=== PATIENT | male | born 1975 | race Caucasian/White ===

== ENCOUNTER 2019-09-05 01:31 | Observation (INO) | payer BC, SELFPAY ==
[2019-09-05] VITALS (10 sets, daily range): BP systolic 114–151; BP diastolic 71–99; PULSE 58–116; RESP 18–24; TEMP 36.4–37.1; O2SAT 97–100; BMI 26.9
--- NOTE | ~2019-09-05 | XR_ITS ---
XR chest 1V portable 09/05/2019 01:58 Indication: Chest pain Procedure: AP portable chest Comparison: 05/15/2013 Findings: Heart size normal. Scattered calcified granulomas of the lung parenchyma. No acute osseous abnormality. No focal air space disease, pulmonary edema, pleural effusion or suspected pneumothorax. Impression: 1: No acute cardiopulmonary disease. Reviewed, dictated and finalized at location A. Impression: 1: No acute cardiopulmonary disease.
--- NOTE | 2019-09-05 01:43 | ED.CHESTPAIN ---
HPI - Chest Pain General Stated Complaint: CHEST PAIN Source: patient Mode of arrival: ambulatory Limitations: no limitations History of Present Illness MD complaint: chest pain and chest heaviness Onset (ago): minute(s) Timing of current episode: constant Prior episodes: No Onset: during rest and awoke with symptoms Pain location: substernal Pain radiation: none Severity: severe Quality: tightness and heaviness Relieving factors: nitroglycerin Exacerbating factors: nothing Associated symptoms: nausea, vomiting and diaphoresis Risk Factors Coronary artery disease risk factors: none Thoracic aortic dissection risk factors: none Related Data Allergies Allergy/AdvReac Type Severity Reaction Status Date / Time No Known Allergies Allergy Unknown Verified 03/10/18 14:43 [facility] Social History Social History Smoking status: Current every day smoker MDM - Chest Pain ECG Data EKG #1: ECG completion date: 09/05/19 ECG completion time: 01:35 Prior ECG tracings: not available for review EKG Interpretation: normal rate and sinus rhythm
--- NOTE | 2019-09-05 01:47 | ECG_ITS ---
Measurements Intervals [employer] Rate: 86 P: 28 FL: 114 QRS: 64 QRSD: 97 T: 31 QT: 351 QTc: 420 Interpretive Statements SINUS RHYTHM WITH SHORT FL INTERVAL BORDERLINE ST ABNORMALITY- INFERIOR LEADS BASELINE ARTIFACT- I, II, III, AVR, AVL, AVF, V-V6 BORDERLINE ECG Electronically Signed On 09-05-2019 7:13:41 CDT by Jose Manuel Barraza D.O.
[2019-09-05 01:59] LABS: Basophils Absolute Auto 0.03 K/mm3 (0.00-0.10); Basophils Percent Auto 0.4 % (0.0-1.0); Eosinophils Absolute Auto 0.14 K/mm3 (0.02-0.50); Eosinophils Percent Auto 1.9 % (1.0-6.0); Hematocrit 37.7 % (40.0-54.0); Immature Granulocyte Absolute 0.02 K/mm3 (0.00-0.00); Immature Granulocyte Percent A 0.3 % (0.0-0.0); Lymphocytes Absolute Auto 3.12 K/mm3 (1.10-4.50); Lymphocytes Percent Auto 43.3 % (18.0-42.0); Mean Corpuscular HGB Conc 34.5 g/dL (32.0-36.0); Mean Corpuscular Hemoglobin 29.5 pg (27.0-31.0); Mean Corpuscular Volume 85.5 fL (78.0-102.0); Mean Platelet Volume 11.9 fl (8.7-11.0); Monocytes Percent Auto 8.3 % (2.0-11.0); Neutrophils Absolute Auto 3.3 K/mm3 (1.7-7.2); Neutrophils Percent Auto 45.8 % (50.0-70.0); Platelet Count Result 138 K/mm3 (150-420); Red Blood Count 4.41 M/mm3 (4.70-6.10); Red Cell Distribution Width 11.8 % (11.6-14.4); White Blood Count 7.2 K/mm3 (4.8-10.8)
[2019-09-05] MEDS: ONDANSETRON INJ 4 MG/2 ML VIAL IV PUSH (01:59)
[2019-09-05] MEDS: ASPIRIN 81 MG CHEWABLE TABLET 324 MG PO (01:59)
--- NOTE | 2019-09-05 02:01 | ECG_ITS ---
Measurements Intervals [place] Rate: 57 P: 7 PA: 137 QRS: 53 QRSD: 97 T: 40 QT: 397 QTc: 389 Interpretive Statements SINUS BRADYCARDIA WITH SINUS ARRHYTHMIA MINIMAL Q WAVES- INF/LAT LEADS BORDERLINE ECG Electronically Signed On 09-05-2019 7:14:16 CDT by Jose Manuel Barraza D.O.
[2019-09-05] MEDS: METOPROLOL TARTRATE INJ 5 MG/5 ML VIAL IV PUSH (02:02)
[2019-09-05] MEDS: MORPHINE SULFATE 4 MG/ML INJ IM (02:07)
[2019-09-05] MEDS: NITROGLYCERIN SL 0.4 MG TABLET SUBLINGUAL (02:09)
[2019-09-05 02:10] LABS: D Dimer 0.24 mg/L (0.19-0.50)
[2019-09-05 02:14] LABS: Alanine Aminotransferase 44 U/L (16-63); Albumin Level 3.8 g/dL (3.4-5.0); Alkaline Phosphatase 51 U/L (46-116); Anion Gap 16.8 mmol/L (7-16); Aspartate Amino Transferase 21 U/L (15-37); Bilirubin,Total 0.3 mg/dL (0.00-1.00); Blood Urea Nitrogen 15 mg/dL (7-18); Calcium 8.4 mg/dL (8.5-10.1); Carbon Dioxide 25 mmol/L (21-32); Chloride 105 mmol/L (98-108); Estimated Glomerular Filt Rate > 60; Osmolality Calculated 297 mOsm/kg (285-295); Potassium 3.8 mmol/L (3.5-5.1); Sodium 143 mmol/L (136-145); Total Protein 7.3 g/dL (6.4-8.2)
[2019-09-05 02:15] LABS: Glucose 111 mg/dL (70-99); Troponin I < 0.02 ng/mL (0.00-0.056)
[2019-09-05 02:22] LABS: Lipase 183 U/L (73-393); Partial Thromboplastin Time 25.4 SEC (22.3-31.6)
--- NOTE | 2019-09-05 02:24 | PC.NURSE ---
#1 ekg 0134 #2 ekg 0214 Lights out for comfort and head of bed lowered per pt request. rating pain 1-2/10. erp discussed plan of care for observation service. pt agrees with plan of care.
--- NOTE | 2019-09-05 02:29 | ED.CHESTPAIN ---
HPI - Chest Pain General Chief Complaint: Chest Pain Stated Complaint: CHEST PAIN Source: patient Mode of arrival: ambulatory Limitations: no limitations History of Present Illness HPI narrative: this is a 43-year-old male that presents with substernal chest pain / pressure and tightness with diaphoresis felt short of breath with an episode of vomiting and nausea, that woke the patient up earlier this morning, patient has no prior heart history, nontobacco some user but does vapor, no alcohol abuse, no fever or chills denies abdominal pain no diarrhea constipation. Patient has a positive family history of MN in mother and father. MD complaint: chest pain, chest heaviness and chest discomfort Timing of current episode: constant Prior episodes: No Onset: during rest and awoke with symptoms Pain location: substernal Pain radiation: none Severity: severe Pain scale (0-10): 10 Quality: tightness and heaviness Relieving factors: nitroglycerin Exacerbating factors: nothing Associated symptoms: nausea, vomiting and diaphoresis Treatment prior to arrival: none Risk Factors Coronary artery disease risk factors: none and smoking history (VAPES) Related Data Home Medications Medication Instructions Recorded Confirmed No Home Medications 09/05/19 09/05/19 Allergies Allergy/AdvReac Type Severity Reaction Status Date / Time No Known Allergies Allergy Unknown Verified 03/10/18 14:43 Review of Systems Review of Systems: All systems reviewed & are unremarkable except as noted in HPI and below PMFSH Past Medical History Medical History Patient denies medical problems Social History Social History Smoking status: Current every day smoker Exam Const: General: no acute distress and alert Orientation/consciousness: patient oriented x3 HENMT: Head: normal to inspection Eyes: Conjunctivae: conjunctivae normal Pupils: Equal, round and reactive pupils present Neck: Neck: normal visual inspection and no lymphadenopathy Chest: Chest palpation & inspection: normal inspection of the chest and abnormal inspection of the chest Other: No reproducible chest pain Resp: Effort & Inspection: normal respiratory effort Auscultation: clear to auscultation bilaterally Cardio: Rate: regular rate Rhythm: regular rhythm GI: Auscultation: normal bowel sounds : Testes: Testes normal Skin: General skin exam: normal color Rashes: no rashes Neuro: General: patient oriented x3, moves all extremities, no meningeal signs and no focal motor deficits Extrem: General: normal to inspection and no pedal edema Psych: Mental Status: mental status grossly normal Course Course Emergency Course: reassessment of patient, initially the patient presents with severe chest pain that he rated at 10/10, patient received nitroglycerin, morphine and Zofran currently is rating his pain at a 2/10 appears more comfortable with no diaphoresis and no shortness of breath no nausea vomiting currently. Vital Signs Vital signs: Vital Signs Pulse Rate 75 09/05/19 02:02 Pulse Rate 75 09/05/19 02:02 MDM - Chest Pain Lab Data Attestation: I reviewed the patient's lab results. Result diagrams: 09/05/19 01:53 09/05/19 01:53 Labs: Lab Results 09/05/19 09/05/19 09/05/19 Range/Units 01:53 01:53 01:53 WBC 7.2 (4.8-10.8) K/mm3 RBC 4.41 L (4.70-6.10) M/mm3 Hgb 13.0 L (14.0-18.0) g/dL Hct 37.7 L (40.0-54.0) % MCV 85.5 (78.0-102.0) fL MCH 29.5 (27.0-31.0) pg MCHC 34.5 (32.0-36.0) g/dL RDW 11.8 (11.6-14.4) % Plt Count 138 L (150-420) K/mm3 MPV 11.9 H (8.7-11.0) fl Immature Gran % (Auto) 0.3 H (0.0-0.0) % Neut % (Auto) 45.8 L (50.0-70.0) % Lymph % (Auto) 43.3 H (18.0-42.0) % [place] % (Auto) 8.3 (2.0-11.0) % Eos % (Auto) 1.9 (1.
[2019-09-05] MEDS: PANTOPRAZOLE SODIUM IV 40 MG VIAL IV PUSH (03:32)
[2019-09-05] MEDS: SODIUM CHLORIDE 0.9% IV 1,000 ML 100 ML IV CONT (03:35)
[2019-09-05] MEDS: MORPHINE SULFATE 2 MG/ML INJ IV PUSH (03:59)
[2019-09-05 09:55] LABS: Basophils Absolute Auto 0.02 K/mm3 (0.00-0.10); Basophils Percent Auto 0.3 % (0.0-1.0); Eosinophils Absolute Auto 0.03 K/mm3 (0.02-0.50); Eosinophils Percent Auto 0.4 % (1.0-6.0); Hemoglobin 11.7 g/dL (14.0-18.0); Immature Granulocyte Absolute 0.02 K/mm3 (0.00-0.00); Immature Granulocyte Percent A 0.3 % (0.0-0.0); Lymphocytes Absolute Auto 1.39 K/mm3 (1.10-4.50); Lymphocytes Percent Auto 19.5 % (18.0-42.0); Mean Corpuscular HGB Conc 34.4 g/dL (32.0-36.0); Mean Corpuscular Hemoglobin 29.5 pg (27.0-31.0); Mean Corpuscular Volume 85.6 fL (78.0-102.0); Monocytes Absolute Auto 0.53 K/mm3 (0.10-0.90); Monocytes Percent Auto 7.4 % (2.0-11.0); Neutrophils Absolute Auto 5.2 K/mm3 (1.7-7.2); Neutrophils Percent Auto 72.1 % (50.0-70.0); Platelet Count Result 106 K/mm3 (150-420); Red Blood Count 3.97 M/mm3 (4.70-6.10); Red Cell Distribution Width 11.9 % (11.6-14.4); White Blood Count 7.1 K/mm3 (4.8-10.8)
[2019-09-05 09:59] LABS: Troponin I < 0.02 ng/mL (0.00-0.056)
[2019-09-05 10:11] LABS: Alanine Aminotransferase 82 U/L (16-63); Albumin Level 3.2 g/dL (3.4-5.0); Alkaline Phosphatase 46 U/L (46-116); Aspartate Amino Transferase 73 U/L (15-37); Bilirubin,Total 0.2 mg/dL (0.00-1.00); Blood Urea Nitrogen 12 mg/dL (7-18); Calcium 7.9 mg/dL (8.5-10.1); Carbon Dioxide 25 mmol/L (21-32); Chloride 107 mmol/L (98-108); Estimated CRCL calculation 88 ml/min; Estimated Glomerular Filt Rate > 60; Glucose 107 mg/dL (70-99); Osmolality Calculated 291 mOsm/kg (285-295); Sodium 141 mmol/L (136-145); Total Protein 6.3 g/dL (6.4-8.2)
[2019-09-05 10:25] LABS: Troponin I < 0.02 ng/mL (0.00-0.056)
[2019-09-05 11:13] LABS: Hemoglobin A1C 5.9 % (<5.7)
[2019-09-05 11:20] LABS: Cholesterol 141 mg/dL (0-200); HDL Direct 34 mg/dL (40-60); LDL Cholesterol Calculated 77 mg/dL (<130); Thyroid Stimulating Hormone 0.84 uIU/mL (0.36-3.74); Triglycerides 150 mg/dL (0-150)
[2019-09-05] MEDS: PANTOPRAZOLE 40 MG TABLET PO (11:27)
--- NOTE | 2019-09-05 13:00 | ECG_ITS ---
Measurements Intervals [place] Rate: 61 P: 60 WA: 149 QRS: 50 QRSD: 103 T: 39 QT: 412 QTc: 416 Interpretive Statements SINUS RHYTHM MINIMAL Q WAVES- INF/LAT LEADS BORDERLINE ECG Electronically Signed On 09-05-2019 13:07:57 CDT by Jose Manuel Barraza D.O.
[2019-09-05 13:13] LABS: Creatine Kinase 47 U/L (39-308)
--- NOTE | 2019-09-05 13:23 | PM.DS ---
DS: Diagnosis Discharge Diagnosis (1) Chest pain: Onset Date: ~09/05/19 Qualifiers: Chest pain type: unspecified Qualified Code(s): R07.9 - Chest pain, unspecified Code(s): R07.9 - Chest pain, unspecified Status: Acute Assessment and Plan: his chest pain has been resolved now for 12 hours he is not requesting pain medication this morning or afternoon he has had 3 troponin levels that are normal and a full cardiac panel this afternoon that was normal he has had 3 EKGs and continuous cardiac telemetry monitoring without acute ST changes or arrhythmias or concerns he has normal vital signs his lipid panel was near normal, his A1c was also near normal at 5.9, his TSH was normal his vitamin-D levels remain pending will continue daily oral Protonix to help alleviate and/or rule out any GERD/reflux causes for this chest discomfort Stuart understands that he will need to follow-up with primary care doctor within 3-14 days and the same for a manager gallery (2) Tachycardia: Onset Date: ~09/05/19 Code(s): R00.0 - Tachycardia, unspecified Status: Acute Assessment and Plan: RESOLVED. Trevor was tachycardic at admission but when I reviewed his heart rate from past vital signs he was not at that time so the tachycardia at this admission was related to pain he also described that when he injured his back in the past he came into the ER at that time and his heart rate still was not elevated so he does not seem to be persistently tachycardia or have a history of tachycardia that needs treated at this time he has been slightly bradycardic since receiving the metoprolol he has shown no arrhythmias and no tachycardia on his EKGs or on his continuous telemetry monitoring so I will not be sending him home on a beta-nel he has decided to follow-up with Dr. Calvillo in [place], [place] and we have scheduled his follow-up appointment for him I will expect him to follow-up with the manager gallery as we have discussed and as we have made an appointment for him with Dr. Yancey DS: Summary Time Spent with Patient Time attestation: Total time spent providing and/or coordinating discharge services:>60 min Exam Const: General: comfortable, no acute distress and alert; No in distress or confusion Orientation/consciousness: patient oriented x3 and No confusion HENMT: Head: normal to inspection General nose exam: Normal nares present Mouth: Yes moist mucous membranes Eyes: General: appearance normal, both eyes and all related structures Conjunctivae: conjunctivae normal Pupils: Equal, round and reactive pupils present Neck: Neck: normal visual inspection, no lymphadenopathy, no meningeal signs and No no JVD Carotids: no bruits Chest: Chest palpation & inspection: normal inspection of the chest, normal palpation of entire chest wall, abnormal inspection of the chest, no crepitus, no localized rib tenderness, no tenderness and No Pacemaker present Other: No reproducible chest pain Resp: Effort & Inspection: normal respiratory effort Auscultation: clear to auscultation bilaterally, no crackles, no rales, no rhonchi, no wheezes and lung sounds not diminished Cardio: Rate: regular rate, not bradycardic and not tachycardic Rhythm: regular rhythm and regular rhythm Heart sounds: no gallops, no murmurs and no rubs GI: Inspection: non-distended Auscultation: normal bowel sounds and bowels sounds normal : Testes: Testes normal Skin: General skin exam: normal color and rashes and/or lesions noted Rashes: no rashes Neuro: General: patient oriented x3, gait normal, moves all extremities, no meningeal signs, no focal motor deficits and No confusion Cranial nerves: Yes Equal, round and reactive pupils present and Yes Normal hearing present Cognition (Neuro): normal cognition and normal cognition Speech: normal speech and No Abnormal speech present Motor exam (neuro): 5/5 motor s
[2019-09-05 13:26] LABS: Troponin I < 0.02 ng/mL (0.00-0.056)
--- NOTE | 2019-09-05 13:48 | PM.IMHP ---
H&P: HPI History of Present Illness Chief complaint: CHEST PAIN Narrative: Stuart Jack is a 43 year old male admitted due to chest pressure and tightness. He said I felt like Alice was standing on my chest , I could only take shallow breaths and I was very short of breath and by the time I got to the ED I felt like I was hyperventilating. Trevor described his chest pain as a centralized upper chest squeeze and stabbing pain. He said he went to bed around 12:30 a.m. and around 1:30am the pain woke him up. Today Stuart said he felt like it was almost like a panic attack but his mother and both agreed he is not an anxious person. He does not currently see a pin chaser and does not have a primary care physician either. When he was admitted his Systolic blood pressure was in the 150s and his heart rate was in the 110s. He was administered nitro morphine and metoprolol. He was placed on continuous telemetry monitoring overnight, serial cardiac troponins ordered and 2 EKGs were done at admission. His 2 troponins were negative at the time of my exam, and I ordered a full cardiac panel to be done around 1:00 p.m. this afternoon. I also ordered a 1:00 p.m. EKG to be completed. Stuart stated that his cardiac and chest pain resolved prior to his admission and that he currently does not have any pain in his chest, no shortness of breath, no jaw pain, no dizziness or lightheadedness, no headache, no shoulder pain, and no arm or shoulder numbness or tingling. He denies any concerns at this point and wanted to go home. I also ordered a lipid panel, A1c, vitamin-D level, TSH, and informed Stuart of those results as they became available. I also started him on oral Protonix daily and discussed why I would continue that at discharge for him. He says in the past that he has had reflux and the sensation of acid regurgitation. I have also instructed him to follow-up with a pin chaser after discharge today and he stated that he would prefer to see Dr. Horton in [place] so we will do our best to get that appointment scheduled. He also stated that he would pick a primary care provider in [place] to follow-up with after discharge. His mother sees pin chaser Dr. Horton and has a history of having an OR at 64 and has 1 cardiac stent, hypertension history, diabetes type 2 history, hyperlipidemia history. His father has a history of hypertension and type 2 diabetes. He does not have any children. 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 he stated that he has not been lifting excessively at work, he has not been trying any new medications, has not been taking anything [id number] new, and has not been drinking more coffee or caffeine than usual, and is not drinking energy drinks.He quit smoking cigarettes in November, but continues to tape and use a vapor pen but he has not changed the substance that he uses in that pen. Review of Systems Review of Systems: All systems reviewed & are unremarkable except as noted in HPI and below Constitutional: Constitutional: Reports as per HPI, Denies body ache(s), Denies chills, Denies difficulty sleeping, Denies excessive sweating, Denies fatigue, Denies headache(s), Denies increased appetite, Denies lethargy, Denies night sweats, Denies snoring, Denies weakness and Denies weight gain Eyes: Eyes: Reports as per HPI, Denies exophthalmos, Denies diplopia, Denies floaters and Denies loss of peripheral vision ENT: Reports as per HPI, Reports Normal hearing present, Denies facial pain, Denies headache(s), Denies nasal congestion, Denies nasal discharge, Denies odynophagia and Denies tinnitus Cardiovascular: Cardiovascular: Reports as per HPI, Denies chest pain, Denies diaphoresis, Denies pedal edema, Denies leg edema, Denies lightheadedness and Denies palpitations Respiratory: Respiratory: Reports as per HPI, Denies chest congestion, Denies cough, Denies hemoptysis, Denies dyspnea, Denies dyspnea on exertion, D
[2019-09-07 20:14] LABS: Vitamin D 25 Hydroxy 10 ng/mL (30-100)
== END 2019-09-05 14:40 | disposition home or self-care (01) ==
LOC: CHSED 02:35 → CHS2ND 03:01
PROVIDERS: Nurse Practitioner; Admitting Provider Emergency Medicine; Emergency Provider Emergency Medicine; Visit Provider Emergency Medicine
DX: R07.9 Chest pain, unspecified (principal); R06.02 Shortness of breath; F17.290 Nicotine dependence, other tobacco product, uncomplicated
CPT/HCPCS: 36415; 71045; 80053; 80061; 82306; 82550; 82553; 83036; 83690; 84443; 84484; 85025; 85380; 85610; 85730; 93005; 96361; 96372; 96374; 96375; 96376; 99285; A9270; C9113; G0378; J2270; J2405; J7030

== ENCOUNTER 2022-02-17 11:51 | Outpatient (CLI) | payer BC, SELFPAY ==
--- NOTE | ~2022-02-17 | XR_ITS ---
EXAMINATION: XR lumbar spine 2-3V DATE: 02/17/2022 12:27 INDICATION: Low back pain TECHNIQUE: Anteroposterior and lateral views of the lumbar spine, and cone-down lateral view of the l umbosacral junction were obtained. COMPARISON: CT, 07/15/2012 FINDINGS: There is moderate loss of intervertebral disc space height at L5-S1. The vertebral body hei ghts are normal. There is no fracture. Alignment is normal. There is moderate facet osteoarthritis of the lower lumbar spine. There is a moderate volume of colonic stool. IMPRESSION: 1. Mild lumbar spondylosis without acute findings. Reviewed, dictated and finalized at location B.
== END 2022-02-17 11:52 | disposition home or self-care (01) ==
LOC: CHSIMG 11:59
PROVIDERS: PCP Physician Assistant; Visit Provider Physician Assistant
DX: M54.51 Vertebrogenic low back pain (principal)
CPT/HCPCS: 72100

== ENCOUNTER 2022-02-20 07:49 | Outpatient (RCR) | payer BC, SELFPAY ==
--- NOTE | 2022-02-20 08:26 | PTOPEVAL ---
Thank you for referring Stuart Jack to [facility].? The patient is scheduled to be seen for therapy? 1-2x/week for 6 visits. Please review, sign, date and return this plan of care TIFFANIE. I agree with and certify that the following plan of care is medically necessary. Referring Physician Date Admitting Provider: Attending Provider: Nick Grider, PA Referring Provider: *PT Outpatient Evaluation Start: 02/20/22 06:59 Freq: Status: Active Protocol: Document 02/20/22 06:59 [facility] (Rec: 02/20/22 08:26 [facility] [email or web address]) Therapy Assessment Status Assessment Status Assessment Status Evaluation Outpatient Past Medical History Neurological History Hx Neurological Disorders No Significant History Cardiovascular History Hx Cardiac Disorders No Significant History Respiratory History Hx Respiratory Disorders No Significant History Gastrointestinal History Hx Gastrointestinal Disorders No Significant History Genitourinary History Hx Genitourinary Disorders No Significant History Musculoskeletal History Hx Back Injury Yes Hx Fractures Yes: lower back no surgery intervention Hematological History Hx Hematological Disorders No Significant History Endocrine History Hx Endocrine Disorders No Significant History HEENT History Hx HEENT Disorders No Significant History Integumentary History Hx Shingles Yes Anesthesia History Hx Anesthesia Reactions No Significant History Evaluation Information Problem Diagnosis Acute LBP Onset 02/06/2022 Subjective Information Pain started 2 weeks ago in Query Text:As Reported By Patient/ low back with insidious onset. Family Discomfort started as tightness, then progressed to pain. Now it feels like he is improving, but it is slow. Feels tight as a guitar string in his central lower back. Notes most pain when twisitng or reaching down to his toes. Has been using Aleve which has really helped with pain, stretching as well. Denies past back injury. Gets some N/T down the R leg that is present most of the time on the bottom of the foot. R leg occasionally feels weak. Denies bowel or bladder changes. Xray showed arthritis
--- NOTE | 2022-03-11 08:09 | PTOPDC ---
Evaluation Information Assessment Status Discharge Diagnosis acute low back pain Onset 02/06/22 Subjective Information patient reports he is doing well this date. he reports he has no pain. he reports he is compliant with his HEP at home. he reports no longer having radicular pain in the R LE. Reported Pain Level Pain Score 0: Self Report Assessment PT Clinical Summary mr boateng presents to skilled PT services for his 6th skilled PT visit. as of this date, he has returned to pain free full prior level funcitonal activity performance. he has met all goals for skilled PT. he will DC skilled PT this date and continue forward with his HEP independent at home. Plan of Care Treatment Frequency and DC to independent HEP Duration
== END 2022-03-11 17:26 | disposition home or self-care (01) ==
LOC: CHSPT 07:49
PROVIDERS: PCP Physician Assistant; Visit Provider Physician Assistant
DX: M54.51 Vertebrogenic low back pain (principal)
CPT/HCPCS: 97014; 97110; 97140; 97161; 97530; G0283

== ENCOUNTER 2022-08-04 11:06 | Outpatient (CLI) | payer BC, SELFPAY ==
--- NOTE | ~2022-08-04 | MR_ITS ---
MRI of the lumbar spine Clinical History: Radiculopathy Technique: Axial T2-weighted images, and sagittal T1-weighted, T2-weighted, and T2 fat-sat images wer e acquired. Findings: There is no fracture or subluxation of the lumbar spine. Vertebral bodies maintain normal h eight and alignment. There are reactive marrow signal changes about the L5-S1 disc space due to under lying degenerative disc disease. At L1-L2, there is no disc bulge or herniation. No spinal canal stenosis or neural foraminal narrowin g. At L2-L3, there is no disc bulge or herniation. There is minimal facet joint hypertrophy. No spinal c anal stenosis or neural foraminal narrowing. At L3-L4, there is minimal disc bulge and mild facet arthropathy. There is probable mild lateral rece ss stenosis bilaterally. There is mild left neural foraminal narrowing. Right neural foramen preserve d. At L4-L5, there is mild disc bulge and mild facet arthropathy. No ruchi spinal canal stenosis. There is moderate left neural foraminal narrowing and mild right neural foraminal narrowing. At L5-S1, there is central disc bulge with facet arthropathy. No spinal canal stenosis. There is mode rate to advanced right neural foraminal narrowing. Left neural foramen preserved. Paravertebral soft tissues are unremarkable. Impression: Mild degenerative spondylosis overall, as detailed above. Reviewed, dictated and finalized at [facility]. 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
--- NOTE | ~2022-08-04 | XR_ITS ---
EXAMINATION:XR cervical spine 4-5V DATE: 08/04/2022 12:06 INDICATION: Neck pain TECHNIQUE: AP, lateral, lateral swimmers and odontoid views of the cervical spine are provided. COMPARISON: None FINDINGS: Alignment is normal. The odontoid process is intact. No fracture is identified. The vertebr al body heights are maintained. There is mild loss of intervertebral disc space height at C4-5 and C5 -6. Prevertebral soft tissues are normal. There is mild facet and uncovertebral joint osteoarthritis. IMPRESSION: 1. Mild cervical spondylosis without acute findings. Reviewed, dictated and finalized at location B. 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
== END 2022-08-04 11:07 | disposition home or self-care (01) ==
PROVIDERS: PCP Physician Assistant; Visit Provider Physician Assistant
DX: M47.22 Other spondylosis with radiculopathy, cervical region (principal); M47.896 Other spondylosis, lumbar region
CPT/HCPCS: 72050; 72148

== ENCOUNTER 2022-08-07 09:11 | Outpatient (RCR) | payer BC, SELFPAY ==
--- NOTE | 2022-08-07 10:32 | PTOPEVAL1 ---
Assessment and note entered by JT File, PT Evaluation Information Assessment Status Evaluation Diagnosis cervical radiculopathy Onset 07/29/22 Subjective Information patient reports he is having nubmness in the entire L arm. he reports he also has pins and needles/tingling in the L arm. he reports it feels as though something is stabbing him in the shoulder blade are. he reports he feels best with reaching up and grabbing the head rest with the L arm, and bending his head forward. he reports he has been having these symptoms around new years time. he reports no injury, and no change in work or activity. 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 he reports he does have to lift 35-40lbs of weight. he reports he has pain all the time. Reported Pain Level Pain Score 4: Self Report Assessment PT Clinical Summary mr. boateng presents to skilled PT services for evaluation and treatment of L UE weakness, pain, numbness, and tingling. he presents this date with signs and symptoms of L cervical radiculopathy. he would benefit from skilled PT intervention to improve his L UE and cervical rom, L UE and cervical strength, posture, elinminate sensory changes, and return to his prior level functional activity performance/quality of life. Plan of Care Interventions Electrical Stimulation,Hot Pack/Cold Pack,Manual Therapy,Mechanical Traction,Neuro Re-education, Patient/Caregiver Educati,Therapeutic Activities, Therapeutic Exercise PT Services Indicated Yes Treatment Frequency and 3x weekly for 12 visits Duration These treatments will address the objective and functional deficits as defined above. The patient will be advanced safely and appropriately in order for the patient to progress towards his/her prior level of function. Additional exercises will be introduced and as well as a comprehensive home exercise program upon discharge, if needed, ?to ensure carryover of functional gains achieved in the clinic. This treatment plan has been reviewed and agreement upon by the patient.
--- NOTE | 2022-08-26 08:02 | PTOPPROG ---
Assessment and note entered by JT File, PT Evaluation Information Assessment Status Progress Diagnosis cervical radiculopathy Onset 07/29/22 Subjective Information patient reports he feels better overall. he reports he has no neck pain any longer. however, he reports he continues to have numbness and tingling in the L hand (thumb, index, and middle finger). he reports this was worse yesterday after performing wall pushup exercises. he reports he also will still notice the symptoms with looking up with the head. Assessment PT Clinical Summary mr. boateng presents to skilled PT services for his 9th skilled therapy visit for cervical radiculopathy. as of this date, all pain is reduced in the neck, but he continues to have symptoms of numbness and tingling into the L hand (thumb, index, and ring fingers). he presents with increased symptoms with L to R cervical side glide of C7, cervical extension, and shoulder flexion exercises. however, he also presents with increased L hand symptoms with phalens and reverse phalens tests. at this time, he would benefit from continued skilled PT as progress has been made in improved rom, decreased pain, and improved quality of life. however, cervical MRI may need to be performed, as well as an EMG/NCS of the L UE to rule out additional carpal tunnel component. Plan of Care Interventions Manual Therapy,Mechanical Traction,Neuro Re- education,Patient/Caregiver Educati,Therapeutic Activities,Therapeutic Exercise PT Services Indicated Yes Treatment Frequency and continue skilled PT 3x weekly for 3 more visits Duration per his initial POC patient would do well to follow up with MD for schedule of MRI and L UE EMG/NCS These treatments will address the objective and functional deficits as defined above. The patient will be advanced safely and appropriately in order for the patient to progress towards his/her prior level of function. Additional exercises will be introduced and as well as a comprehensive home exercise program upon discharge, if needed, ?to ensure carryover of functional gains achieved in the clinic. This treatment plan has been reviewed and agreement upon by the patient.
--- NOTE | 2022-09-03 08:07 | PTOPDC ---
Assessment and note entered by JT File, PT Evaluation Information Assessment Status Discharge Diagnosis cervical radiculopathy Onset 07/29/22 Subjective Information patient reports he feels good this date. he reports no pain in the neck or L UE. however, he continues to have numbness and tingling in the L arm into the L hand. he reports these symptoms have been less since starting a steroid dose pack. he reports he has a home doorway traction device. Reported Pain Level Pain Score 0: Self Report Assessment PT Clinical Summary mr. boateng presents to skilled PT services for his 12th skilled therapy visit this date. he presents today with imporved cervical rom, no pain, improved strength, and compliance with his HEP and traction at home. he continues to present with L UE nerve symptoms consistent with a L cervical radiculopathy/carpal tunnel. he will DC skilled PT this date and continue with HEP independent at home. he is awaiting an MRI of the neck, but may also need an NCS/EMG of the L UE. Plan of Care Treatment Frequency and DC to independent HEP and MD follow up for results Duration of MRI/EMG/NCS
== END 2022-09-03 09:38 | disposition home or self-care (01) ==
LOC: CHSPT 09:11
PROVIDERS: Visit Provider Physician Assistant
DX: M54.12 Radiculopathy, cervical region (principal)
CPT/HCPCS: 97012; 97014; 97110; 97140; 97161; 97530; G0283

== ENCOUNTER 2022-09-25 12:49 | Outpatient (CLI) | payer BC, SELFPAY ==
--- NOTE | ~2022-09-25 | CT_ITS ---
EXAMINATION: CT cervical spine wo con DATE: 09/25/2022 13:12 INDICATION: Cervical myelopathy. TECHNIQUE: Computed tomography (CT) of the cervical spine was performed without intravenous contrast. Automated exposure control and iterative reconstruction technique were employed. The dose-length pro duct was 376.32 mGy-cm. COMPARISON: Cervical spine radiographs 08/04/2022 FINDINGS: Calcified left lung nodules are consistent with old granulomatous disease. There is 2 mm re trolisthesis of C5 on C6. There is mild chronic anterior wedging of T2, T3, and T4 vertebral bodies. There is mildly decreased disc height at C2-C3, C3-C4, and C4-C5, moderately decreased disc height at C5-C6, and mildly decreased disc height at C6-C7. The following disc levels are specifically discuss ed: C2-C3: There is no uncovertebral joint osteoarthritis. There is mild bilateral facet joint osteoarthr itis. There is no neural foraminal stenosis. There is no central canal stenosis. C3-C4: There is mild bilateral uncovertebral joint osteoarthritis. There is mild bilateral facet join t osteoarthritis. There is mild bilateral neural foraminal stenosis. There is mild central canal sten osis. C4-C5: There is mild bilateral uncovertebral joint osteoarthritis. There is mild bilateral facet join t osteoarthritis. There is no neural foraminal stenosis. There is mild central canal stenosis. C5-C6: There is mild bilateral uncovertebral joint osteoarthritis. There is no facet joint osteoarthr itis. There is mild bilateral neural foraminal stenosis. There is moderate central canal stenosis. C6-C7: There is mild bilateral uncovertebral joint osteoarthritis. There is mild left facet joint ost eoarthritis. There is mild bilateral neural foraminal stenosis. There is mild central canal stenosis. C7-T1: There is no uncovertebral joint osteoarthritis. There is severe bilateral facet joint osteoart hritis. There is mild bilateral neural foraminal stenosis. There is no central canal stenosis. IMPRESSION: 1. Moderate cervical spondylosis. Reviewed, dictated and finalized at location A.
== END 2022-09-25 12:50 ==
LOC: GOSHIMG 12:50
PROVIDERS: PCP Physician Assistant; Visit Provider Neurological Surgery
DX: G95.9 Disease of spinal cord, unspecified (principal); M47.892 Other spondylosis, cervical region
CPT/HCPCS: 72125

== ENCOUNTER 2023-06-03 07:54 | Outpatient (CLI) | payer BC, SELFPAY ==
[2023-06-03 08:08] LABS: Hematocrit 43.5 % (40.0-54.0); Hemoglobin 14.9 g/dL (14.0-18.0); Immature Platelet Fraction Pct 17.8 % (1.0-7.0); Mean Corpuscular HGB Conc 34.3 g/dL (32.0-36.0); Mean Corpuscular Hemoglobin 30.2 pg (27.0-31.0); Mean Corpuscular Volume 88.1 fL (78.0-102.0); Mean Platelet Volume 13.7 fl (8.7-11.0); Platelet Count Result 96 K/mm3 (150-420); Red Blood Count 4.94 M/mm3 (4.70-6.10); Red Cell Distribution Width 11.8 % (11.6-14.4); White Blood Count 7.9 K/mm3 (4.8-10.8)
[2023-06-03 08:47] LABS: Alanine Aminotransferase 27 U/L (16-63); Albumin Level 4.1 g/dL (3.4-5.0); Alkaline Phosphatase 64 U/L (46-116); Anion Gap 3 mmol/L (8-16); Aspartate Amino Transferase 14 U/L (15-37); Bilirubin,Total 0.2 mg/dL (0.00-1.00); Blood Urea Nitrogen 16 mg/dL (7-18); Calcium 9.1 mg/dL (8.5-10.1); Carbon Dioxide 33 mmol/L (21-32); Chloride 104 mmol/L (98-108); Cholesterol 134 mg/dL (0-200); Estimated Glomerular Filt Rate 57; Glucose 111 mg/dL (70-99); HDL Direct 32 mg/dL (40-60); LDL Cholesterol Calculated 40 mg/dL (<130); Osmolality Calculated 292 mOsm/kg (285-295); Sodium 140 mmol/L (136-145); Thyroid Stimulating Hormone 1.52 uIU/mL (0.36-3.74); Triglycerides 311 mg/dL (0-150)
== END 2023-06-03 07:55 | disposition home or self-care (01) ==
LOC: CHSLAB 07:56
PROVIDERS: PCP Emergency Medicine; Visit Provider Emergency Medicine
DX: E03.9 Hypothyroidism, unspecified (principal); E78.5 Hyperlipidemia, unspecified; R53.83 Other fatigue
CPT/HCPCS: 36415; 80053; 80061; 84443; 85027; 85055

== ENCOUNTER → 2023-06-05 14:33 | Outpatient (CLI) | payer BC, SELFPAY ==
--- NOTE | ~2023-06-05 | MR_ITS ---
EXAMINATION: MR lumbar spine wo con DATE: 06/05/2023 15:11 INDICATION: Dorsalgia, unspecified. TECHNIQUE: Magnetic resonance imaging (MRI) of the lumbar spine was performed without intravenous con trast. Sequences included sagittal T2-weighted FSE, sagittal T2-weighted FS FSE, sagittal T1-weighted FSE, and axial T2-weighted FSE. COMPARISON: Lumbar spine MRI 08/04/22 FINDINGS: Bone alignment is normal. Vertebral body heights are normal. There is mildly decreased disc height at L3-L4 and moderately decreased disc height at L5-S1. The distal spinal cord signal intensi ty is normal. The conus medullaris is at T12-L1. The following disc levels are specifically discussed : L1-L2: The disc does not extend beyond the endplate margin. There is mild bilateral facet joint osteo arthritis. There is no neural foraminal stenosis. There is no central canal stenosis. L2-L3: The disc does not extend beyond the endplate margin. There is mild bilateral facet joint osteo arthritis. There is no neural foraminal stenosis. There is no central canal stenosis. L3-L4: The disc is bulging and has an annular fissure. There is moderate bilateral facet joint osteoa rthritis. There is mild right and moderate left neural foraminal stenosis. There is mild central amelia l stenosis. L4-L5: The disc is bulging and has an annular fissure. There is severe right and mild left facet join t osteoarthritis. There is mild right and moderate left neural foraminal stenosis. There is mild cent ral canal stenosis. L5-S1: The disc is bulging and has an annular fissure. The disc abuts the S1 nerve roots in the later al recesses. There is moderate bilateral facet joint osteoarthritis. There is moderate right and mild left neural foraminal stenosis. There is mild central canal stenosis. There is moderate stenosis of the lateral recesses. IMPRESSION: 1. Moderate lumbar spondylosis, stable from 08/04/2022. Reviewed, dictated and finalized at location E. LE ENGINEER
== END ==
PROVIDERS: PCP Neurological Surgery; Visit Provider Emergency Medicine
DX: M47.896 Other spondylosis, lumbar region (principal)
CPT/HCPCS: 72148

== ENCOUNTER 2023-07-27 02:57 | Emergency (ER) | payer BC, SELFPAY ==
--- NOTE | ~2023-07-27 | XR_ITS ---
Clinical Indication: Chest pain AP and lateral views of the chest: Comparison: 09/05/2019 Findings: Several calcified granulomas are present. The lungs are otherwise clear, without evidence o f focal consolidation or pleural effusion. Cardiomediastinal silhouette is within normal limits. Bon es and soft tissues are unremarkable. Impression: No significant pulmonary abnormality. Reviewed, dictated and finalized at [facility]. E POST CUTTER Impression: No significant pulmonary abnormality.
--- NOTE | 2023-07-27 02:58 | ECG_ITS ---
Measurements Intervals [place] Rate: 73 P: 21 [place]: 125 QRS: 65 QRSD: 96 T: 53 QT: 365 QTc: 404 Interpretive Statements SINUS RHYTHM MINIMAL Q WAVES- INF/LAT LEADS BASELINE WANDER- II, III BORDERLINE ECG COMPARED TO ECG 09/05/2019 12:58:45 NO SIGNIFICANT CHANGES Electronically Signed On 07-27-2023 6:11:57 [employer] by Jose Manuel Barraza D.O.
[2023-07-27 03:03] VITALS: BP 159/82; PULSE 80; RESP 24; TEMP 37; O2SAT 100
[2023-07-27 03:26] LABS: Basophils Percent Auto 0.3 % (0.2-1.2); Eosinophils Absolute Auto 0.1 K/mm3 (0-0.3); Eosinophils Percent Auto 0.8 % (0-4.4); Hematocrit 40.8 % (42.0-52.0); Hemoglobin 13.7 g/dL (14.0-18.0); Immature Granulocyte Absolute 0.03 K/mm3 (0.00-0.031); Immature Granulocyte Percent A 0.3 % (0-0.5); Immature Platelet Fraction Pct 16.5 % (0.9-11.2); Lymphocytes Absolute Auto 1.48 K/mm3 (0.9-3.2); Lymphocytes Percent Auto 14.7 % (18.3-44.2); Mean Corpuscular HGB Conc 33.6 g/dl (32-36); Mean Corpuscular Hemoglobin 29.5 pg (26-34); Mean Corpuscular Volume 87.9 fl (80-100); Mean Platelet Volume 13.2 fl (7.4-10.4); Monocytes Absolute Auto 0.6 K/mm3 (0.1-0.6); Monocytes Percent Auto 5.7 % (2.6-8.5); Neutrophils Absolute Auto 7.9 K/mm3 (1.3-6.7); Neutrophils Percent Auto 78.2 % (45.5-73.1); Platelet Count Result 102 k/mm3 (150-375); Red Blood Count 4.64 M/mm3 (4.6-6.20); Red Cell Distribution Width 12.1 % (11.5-14.5); White Blood Count 10.1 K/mm3 (4.5-10.0)
[2023-07-27 03:35] LABS: INR 0.9; Prothrombin Time 12.9 Seconds (11.1-14.7)
[2023-07-27 03:36] LABS: Partial Thromboplastin Time 28.3 SECONDS (22.3-36.8)
[2023-07-27 03:37] LABS: Alanine Aminotransferase 24 U/L (6-50); Albumin Level 4.5 g/dL (3.5-5.1); Alkaline Phosphatase 69 U/L (38-126); Anion Gap 10 mmol/L (8-16); Aspartate Amino Transferase 21 U/L (17-59); Bilirubin,Total 0.4 mg/dL (0.2-1.3); Blood Urea Nitrogen 17 mg/dL (9-20); Calcium 9.7 mg/dL (8.4-10.2); Carbon Dioxide 23 mmol/L (22-30); Chloride 107 mmol/L (98-107); Estimated CRCL calculation 82 ml/min; Estimated Glomerular Filt Rate > 60; Glucose 127 mg/dL (65-110); Lipase 136 U/L (23-300); Potassium 3.5 mmol/L (3.4-5.0); Sodium 140 mmol/L (137-145)
[2023-07-27 03:48] LABS: Troponin I < 0.012 ng/mL (0.000-0.034)
--- NOTE | 2023-07-27 05:22 | PC.NURSE ---
Patient ambulates to the desk with steady gait to see if there was an update and if I was going to get a room soon. This RN informed patient that there is not a room available at this time, but that he will be taken to a room when one becomes available. Patient then states well, I am just going to go home, I will call my primary in the morning. Patient then walked away from desk before this RN could explain risks of leaving before being seen by a provider and benefits of staying. Patient ambulated out of the ED with a steady gait with belongings in hand. patient had SO here with him.
== END 2023-07-27 05:44 | disposition left against medical advice (07) ==
LOC: ANHED 05:37
PROVIDERS: Emergency Provider Emergency Medicine; PCP Emergency Medicine
DX: R06.02 Shortness of breath (principal); R07.9 Chest pain, unspecified
CPT/HCPCS: 36415; 71046; 80053; 83690; 84484; 85025; 85055; 85610; 85730; 93005; 99199

== ENCOUNTER 2023-07-30 16:45 | Outpatient (CLI) | payer BC, SELFPAY ==
[2023-07-30 17:08] LABS: Hemoglobin A1C 5.4 % (<5.7)
[2023-07-30 17:35] LABS: Thyroid Stimulating Hormone 1.75 uIU/mL (0.36-3.74)
== END 2023-07-30 16:46 | disposition home or self-care (01) ==
LOC: CHSLAB 16:47
PROVIDERS: PCP Emergency Medicine; Visit Provider Emergency Medicine
DX: E11.9 Type 2 diabetes mellitus without complications (principal); E03.9 Hypothyroidism, unspecified
CPT/HCPCS: 36415; 83036; 84443

== ENCOUNTER 2023-12-07 01:05 | Day surgery (SDC) | payer BC, SELFPAY ==
[2023-11-18 13:25] VITALS: BMI 23.7
[2023-12-07 12:15] VITALS: BP 129/73; PULSE 78; RESP 16; TEMP 36.9; O2SAT 100
[2023-12-07] MEDS: LACTATED RINGERS 1,000 ML 150 ML IV CONT (12:17)
--- NOTE | 2023-12-07 12:28 | WPDANESEPPF ---
Anes - Initial Pre Proc Eval Procedure: Operation Date: 12/07/23 14:30 Proposed Procedures p Colonoscopy - Alex Encinas MD Date/Time: 12/07/23 12:28 Surgeon: Alex Encinas MD Pre Op Diagnosis: hemorrhage of anus and rectum Patient Data Age: 48 Gender: M Height: 1.78 m Weight: 77.6 kg Last Vital Signs Temp 98.4 F 12/07/23 12:15 Pulse 78 12/07/23 12:15 Resp 16 12/07/23 12:15 BP 129/73 12/07/23 12:15 Pulse Ox 100 12/07/23 12:15 O2 Del Method Room Air 12/07/23 12:15 Allergies Allergy/AdvReac Type Severity Reaction Status Date / Time No Known Allergies Allergy Unknown Verified 12/07/23 12:11 Home Medications Medication Instructions Recorded Confirmed Type buspirone 10 mg tablet 10 mg PO BID 06/02/23 11/18/23 History losartan 50 mg-hydrochlorothiazide 1 tablet PO DAILY #90 tabs 07/29/23 11/18/23 Rx 12.5 mg tablet gabapentin 300 mg capsule 300 mg PO BID #180 caps 08/31/23 11/18/23 Rx docusate sodium 50 mg capsule 50 mg PO QHS #90 caps 09/01/23 12/07/23 Rx (Colace Clear) atorvastatin 10 mg tablet 10 mg PO DAILY #90 tabs 11/05/23 11/18/23 Rx Patient hx anesthesia problems: none Family hx anesthesia problems: none Results Review: All pre-operative results and documents have been reviewed as part of the pre-operative evaluation. [facility] Past Medical History Medical History Chronic cough (03/09/12) Nicotine dependence (03/09/12) Patient denies medical problems Surgical History Surgical History S/P cervical disc replacement Family History Family History Mother Acute myocardial infarction, Onset Age: 63 Diabetes mellitus Heart disease Hypertension Hyperlipidemia Father Hypertension Diabetes mellitus Cerebrovascular accident Lung cancer Social History Social History Smoking packs per day: 1 Smoking cigarettes per day: 20.0 Smoking status: Current every day smoker Tobacco type: cigarettes and e-cigarettes/vaping Smoking end date: 06/29/18 Alcohol intake: current Alcohol use details: rare Substance use: current Substance use type: marijuana Current Housing: Decline to Answer Concerned About Future Housing: Decline to Answer Difficulty Paying Gas/Electric Bills: Decline to Answer Difficulty Paying for Meds: Decline to Answer Currently Unemployed: Decline to Answer Education: Decline to Answer Difficulty w/ Childcare or Family Care: Decline to Answer Living arrangements: with family Gender identity (if verbalized by the patient): Male Spiritual care concerns: No Anes - Eval Final PreProcedure Day of Procedure 12/07/23 12:28 Patient weight: normal Heart: regular rate and rhythm Lungs: clear to auscultation Airway: Mallampati scale class II Neurological: alert and oriented Last oral intake: >/= 8 hours ASA classification: III Emergent: no Anesthetic plan: proceed Anesthesia type and monitoring: general GIVS and standard monitoring Results Review: All pre-operative results and documents have been reviewed as part of the pre-operative evaluation. Informed Consent: The patient's anesthetic plan and its attendant risks and benefits were discussed with the patient/family/POA. Questions were solicited and answers provided to the satisfaction of the patient/family/POA.
--- NOTE | 2023-12-07 12:29 | PM.HPGS ---
History of Present Illness History of Present Illness Consent: Risks, benefits, and alternatives have been discussed and questions answered. Patient agrees to proceed with procedure. Chief complaint: hemorrhage of anus and rectum Narrative: Stuart Jack is a 48 year old male here for first colonoscopy Review of Systems Review of Systems: All systems reviewed & are unremarkable except as noted in HPI and below PMFSH Past Medical History Medical History Chronic cough (03/09/12) Nicotine dependence (03/09/12) Patient denies medical problems Surgical History Surgical History S/P cervical disc replacement Family History Family History Mother Acute myocardial infarction, Onset Age: 63 Diabetes mellitus Heart disease Hypertension Hyperlipidemia Father Hypertension Diabetes mellitus Cerebrovascular accident Lung cancer Social History Social History Smoking packs per day: 1 Smoking cigarettes per day: 20.0 Smoking status: Current every day smoker Tobacco type: cigarettes and e-cigarettes/vaping Smoking end date: 06/29/18 Alcohol intake: current Alcohol use details: rare Substance use: current Substance use type: marijuana Current Housing: Decline to Answer Concerned About Future Housing: Decline to Answer Difficulty Paying Gas/Electric Bills: Decline to Answer Difficulty Paying for Meds: Decline to Answer Currently Unemployed: Decline to Answer Education: Decline to Answer Difficulty w/ Childcare or Family Care: Decline to Answer Living arrangements: with family Gender identity (if verbalized by the patient): Male Spiritual care concerns: No Meds Home Medications and Allergies Home Medications Medication Instructions Recorded Confirmed Type buspirone 10 mg tablet 10 mg PO BID 06/02/23 11/18/23 History losartan 50 mg-hydrochlorothiazide 1 tablet PO DAILY #90 tabs 07/29/23 11/18/23 Rx 12.5 mg tablet gabapentin 300 mg capsule 300 mg PO BID #180 caps 08/31/23 11/18/23 Rx docusate sodium 50 mg capsule 50 mg PO QHS #90 caps 09/01/23 12/07/23 Rx (Colace Clear) atorvastatin 10 mg tablet 10 mg PO DAILY #90 tabs 11/05/23 11/18/23 Rx Allergies Allergy/AdvReac Type Severity Reaction Status Date / Time No Known Allergies Allergy Unknown Verified 12/07/23 12:11 Vital Signs Vital Signs - 24 hr 12/07/23 12:15 Temperature 98.4 F Pulse Rate 78 Respiratory Rate 16 Blood Pressure 129/73 Pulse Oximetry 100 Oxygen Delivery Room Air Exam Const: General: comfortable and no acute distress HENMT: Face/Nose/Sinus: Normal nares present Eyes: General: appearance normal, both eyes and all related structures Neck: Neck: no JVD Resp: Auscultation: clear to auscultation bilaterally Cardio: Rate: regular rate Rhythm: regular rhythm GI: Inspection: non-distended GI Palp: Yes Soft to palpation Skin: General skin exam: normal color Neuro: General: gait normal Speech: normal speech Extrem: General: normal to inspection Psych: Mental Status: mental status grossly normal Assessment and Plan Assessment and plan (1) Colon cancer screening: Code(s): Z12.11 - Encounter for screening for malignant neoplasm of colon Status: Acute Assessment and Plan: colonoscopy
[2023-12-07 12:50] VITALS: BP 103/72; PULSE 82; RESP 20; O2SAT 99
[2023-12-07 13:00] VITALS: BP 105/70; PULSE 78; RESP 19; O2SAT 99
[2023-12-07 13:10] VITALS: BP 125/82; PULSE 73; RESP 19; O2SAT 99
== END 2023-12-07 13:15 | disposition home or self-care (01) ==
PROVIDERS: PCP Emergency Medicine; Referring Provider Emergency Medicine; Visit Provider Internal Medicine Gastroenterology
PROC: 0DJD8ZZ Inspection of Lower Intestinal Tract, Via Natural or Artificial Opening Endoscopic (ICD-10-PCS; CPT 45378; principal; 2023-12-07 14:30)
DX: Z12.11 Encounter for screening for malignant neoplasm of colon (principal); K63.5 Polyp of colon; K57.30 Diverticulosis of large intestine without perforation or abscess without bleeding; K64.8 Other hemorrhoids; F17.210 Nicotine dependence, cigarettes, uncomplicated; F17.290 Nicotine dependence, other tobacco product, uncomplicated; F12.90 Cannabis use, unspecified, uncomplicated
CPT/HCPCS: 45380; 88305; J2001; J2704; J7120